=== PATIENT | female | born 1970 | race Caucasian/White ===

== ENCOUNTER 2021-03-11 14:47 | Emergency (ER) | payer BC, SELFPAY ==
[2021-03-11 14:50] VITALS: BP 159/89; PULSE 136; RESP 17; TEMP 36.1; O2SAT 97; BMI 35.7
[2021-03-11 15:20] LABS: Internal QC Validated? YES +Cl - CLEAR BKGD
[2021-03-11 15:22] LABS: Pregnancy, Serum, hCG Quali. NEGATIVE Negative
[2021-03-11 15:26] LABS: Anion Gap 3 (5-15); BUN 18 mg/dL (7-18); BUN/Creat Ratio 15.7 RATIO (10-20); Calcium,Total 9.2 mg/dL (8.5-10.1); Chloride 102 mmol/L (98-107); Creatinine, Serum 1.15 mg/dL (0.55-1.02); EST Glomerular Filtration Rate 53 mL/min (>60); Est Glom Filt Rate - Afr Amer 64 mL/min (>60); Estimated Creatinine Clearance 52.08 ml/min; Glucose 122 mg/dL (74-106); Potassium 3.3 mmol/L (3.5-5.1); Sodium Level 136 mmol/L (136-145)
--- NOTE | 2021-03-11 15:33 | EDS_ITS ---
HPI HPI - GI History of Present Illness Chief Complaint: Nausea/Vomiting/Diarrhea Informant: patient Narrative Narrative: Patient has had nausea, vomiting and diarrhea. Symptoms started 9 days ago and are progressively getting worse. She has been vomiting multiple times a day. She tried 4 mg of Zofran ODT without relief. She has been dealing with sinus drainage and believes that is the cause of the nausea. Her doctor put her on doxycycline which is only made her symptoms worse as far as the nausea and vomiting. She has not take anything for the diarrhea. She denies any abdominal pain with this. She has history of an appendectomy in the past. She denies any dysuria or hematuria. PFSH PFSH Home Medications promethazine 25 mg PO Q6H PRN PRN #10 tablet 03/11/21 [Rx Last Taken Unknown] Allergy/AdvReac Type Severity Reaction Status Date / Time amoxicillin Allergy Rash Verified 03/11/21 14:48 Social History Smoking Status: Never smoker ROS ROS ED Constitutional Constitutional ED: Denies chills or fever(s) Eyes Eyes: Denies blurry vision, change in vision or diplopia ENT ENT ED: Denies ear pain, rhinorrhea or sore throat Cardiovascular Cardiovascular: Denies chest pain or palpitations Respiratory/Chest Respiratory/Chest: Denies cough, dyspnea or sputum Gastrointestinal Gastrointestinal: Reports diarrhea, nausea and vomiting Genitourinary Genitourinary ED: Denies dysuria, hematuria or urinary frequency Musculoskeletal Musculoskeletal: Denies back pain or neck pain Integumentary Denies change in pigmentation or rash Neurologic Neurologic: Denies headache(s), numbness or weakness Psychiatric Psychiatric: Denies anxiety or depression Endocrine Endocrinology: Denies polydipsia or polyuria EXAM Physical Exam Const Vital Signs: 03/11/21 14:50 03/11/21 15:51 03/11/21 17:27 Temperature 96.9 F L Temperature Source Temporal Pulse Rate 136 H 122 H 132 H Respiratory Rate 17 18 18 Blood Pressure 159/89 H 145/100 H Blood Pressure Mean 112 115 Pulse Ox 97 94 94 Oxygen Delivery Method Room Air Room Air Room Air Positive well nourished and well developed General Appearance ED: well developed and NAD HEENT Reports moist mucous membranes normocephalic and atraumatic; Negative for tenderness Eyes PERRL and EOMs intact bilaterally Neck supple and no JVD Chest Wall Chest: Negative for tenderness Resp normal respiratory effort and clear to auscultation bilaterally Effort and Inspection: Negative for respiratory distress Cardio regular rhythm and no murmurs Rate: regular rate and tachycardic Rhythm: regular rhythm GI soft to palpation, non-tender and non-distended Palpation: soft Back/Spine no CVA tenderness and no thoracic nor lumbar tenderness Cervical Spine: Negative for cervical spine tenderness Extremity normal to inspection and full ROM General Extremety ED: Negative for tenderness Neuro oriented x3, CN's II-XII intact bilaterally and no sensory deficits noted Sensorium / Orientation: awake and alert Motor Exam: strength 5/5 throughout Psych mental status grossly normal Skin no rashes or lesions noted MDM MDM MDM Narrative Medical decision making narrative: The patient was given 1 L of IV fluids as well as Zofran. Laboratory studies show hemoconcentration. Her creatinine is 1.15. Glucose is 122. test is negative. Liver enzymes and lipase ar e normal except for an ALT of 62. She continued to have nausea so she was given Reglan which also did not help. Intramuscular Phenergan was given and this made her feel better. She was given a second liter of IV fluids due to her continued tachycardia. I feel that this tachycardia is due to dehydration. Her white blood cell count is normal. Do not feel that she is septic. There is no eviden ce of urinary tract infection on the urinalysis. Patient will be discharged home with Phenergan orally to take. She will need to follow-up with her PCP. Lab Data Labs: Laboratory Results - last 24 hr 03/11/21 03/11/21 03/11/21 15:00 15:00 15:00 WBC 7.7 RBC 5.68 H Hgb 15.7 H Hct 49.5 H MCV 87.1 MCH 27.6 MCHC 31.7 L RDW Std Deviation 41.1 RDW Coeff of Armida 12.9 Plt Count 231 MPV 11.6 Immature Gran % (Auto) 0.600 Neut % (Auto) 83.4 H Lymph % (Auto) 8.6 L [place] % (Auto) 7.1 Eos % (Auto) 0.0 Baso % (Auto) 0.3 Absolute Neuts (auto) 6.4 Absolute Lymphs (auto) 0.66 L Nucleated RBC % 0 Sodium 136 Potassium 3.3 L Chloride 102 Carbon Dioxide 31.0 Anion Gap 3 L BUN 18 Creatinine 1.15 H Estim Creat Clear Calc 52.08 Est GFR (MDRD) Af Amer 64 Est GFR (MDRD) Non-Af 53 L BUN/Creatinine Ratio 15.7 Glucose 122 H Calcium 9.2 Total Bilirubin Direct Bilirubin AST ALT Alkaline Phosphatase Total Protein Albumin Globulin Lipase Serum , Qual NEGATIVE Urine Color Urine Clarity Urine pH Ur Specific [place] Urine Protein Urine Glucose (UA) Urine Ketones Urine Occult Blood Urine Nitrite Urine Bilirubin Urine Urobilinogen Ur Leukocyte Esterase Urine RBC Urine WBC Ur Squamous Epith Cells Urine Bacteria Urine Mucus 03/11/21 03/11/21 03/11/21 15:00 15:00 17:50 WBC RBC Hgb Hct MCV MCH MCHC RDW Std Deviation RDW Coeff of [place] Plt Count MPV Immature Gran % (Auto) Neut % (Auto) Lymph % (Auto) [place] % (Auto) Eos % (Auto) Baso % (Auto) Absolute Neuts (auto) Absolute Lymphs (auto) Nucleated RBC % Sodium Potassium Chloride Carbon Dioxide Anion Gap BUN Creatinine Estim Creat Clear Calc Est GFR (MDRD) Af Amer Est GFR (MDRD) Non-Af BUN/Creatinine Ratio Glucose Calcium Total Bilirubin 0.70 Direct Bilirubin 0.20 AST 36 ALT 62 H Alkaline Phosphatase 87 Total Protein 8.6 H Albumin 3.5 Globulin 5.1 H Lipase 58 L Serum , Qual Urine Color Yellow Urine Clarity Clear Urine pH 6.0 Ur Specific [place] 1.015 Urine Protein 100 H Urine Glucose (UA) Normal Urine Ketones 50 H Urine Occult Blood 250 H Urine Nitrite Negative Urine Bilirubin 1 H Urine Urobilinogen 1 H Ur Leukocyte Esterase 25 H Urine RBC 0-5 SEEN Urine WBC 0-5 SEEN Ur Squamous Epith Cells 0-5 SEEN Urine Bacteria 0 SEEN Urine Mucus 0 SEEN Discharge Plan Triage Chief Complaint: Nausea/Vomiting/Diarrhea ED Provider: Rudi Galvin Dx/Rx/DC Orders Clinical Impression: Gastroenteritis Instructions: ED Food Poison Or Gastroenteritis Prescriptions: New promethazine [promethazine] 25 MG tablet 25 mg PO Q6H PRN PRN (Reason: Nausea) Qty: 10 RF: 0 Primary Care Provider: Giovani Mcclellan Referrals: Giovani Mcclellan, [Primary Care Provider] - Disposition Disposition: Home, self care
[2021-03-11 15:40] LABS: Absolute Lymphocyte Count 0.66 X10^3/uL (0.83-4.51); Absolute Neutrophil Count 6.4 X10^3/uL (2.0-7.7); Basophil# 0.02 X10^3/uL; Basophil% 0.3 % (0-1); Hematocrit 49.5 % (37-47); Hemoglobin 15.7 g/dL (12.0-15.0); Lymphocyte # 0.66 X10^3/ul (0.83-4.51); Lymphocyte % 8.6 % (19-41); Mean Corp Hgb Conc 31.7 g/dL (32-36); Mean Corpuscular Hgb 27.6 pg (27.0-32.0); Mean Corpuscular Volume 87.1 fL (81-99); Mean Platelet Vol. 11.6 fl (6.2-12.0); Monocyte# 0.55 X10^3/uL; Monocyte% 7.1 % (0-10); NRBC Flagged by Analyzer 0 % (0-5); Neutrophil # 6.43 X10^3/uL (2.7-7.7); Neutrophil % 83.4 % (47-70); Platelet Count 231 K/mm3 (150-450); RBC Distribution Width CV 12.9 % (11.6-14.6); RBC Distribution Width SD 41.1 fl (35.1-43.9); Red Blood Count 5.68 M/mm3 (4.2-5.4); White Blood Count 7.7 K/mm3 (4.4-11.0)
[2021-03-11] MEDS: 0.9% Normal Saline 1,000 ML 1000 ML IV ×2 (15:44→17:45)
[2021-03-11] MEDS: Ondansetron 4 MG/2 ML Vial IV (15:45)
[2021-03-11 15:51] VITALS: PULSE 122; RESP 18; O2SAT 94
[2021-03-11 16:19] LABS: Lipase 58 U/L (73-393)
[2021-03-11 16:21] LABS: AST(SGOT) 36 U/L (15-37); Alanine Aminotransfer ALT/SGPT 62 U/L (13-56); Albumin, Serum 3.5 g/dL (3.2-5.0); Alkaline Phosphatase 87 U/L (45-117); Globulin 5.1 g/dL (2.2-4.2); Protein, Total 8.6 g/dL (6.4-8.2)
[2021-03-11 17:27] VITALS: BP 145/100; PULSE 132; RESP 18; O2SAT 94
[2021-03-11] MEDS: Metoclopramide 10 MG/2 ML Vial IV (17:43)
[2021-03-11 17:56] LABS: Bacteria 0 SEEN /hpf (None Seen); Mucous, Urine 0 SEEN /hpf (<or=2+)
[2021-03-11 17:58] LABS: Color, Urine Yellow (Yellow); Glucose, Dipstick Normal (Normal); Ketone-Dipstick 50 mg/dl (Negative); Leukocyte Esterase-Dipstick 25 /ul (Negative); Nitrite-Dipstick Negative (Negative); Occult Blood-Urine 250 /ul (Negative); Protein-Dipstick 100 mg/dl (Negative); Specific Gravity, Urine 1.015 (1.002-1.030); Urine Bilirubin Dipstick 1 mg/dL (Negative); Urine Clarity Clear (Clear); Urine Urobilinogen 1 mg/dl (Normal)
[2021-03-11 18:04] LABS: Red Blood Cells-Urine 0-5 SEEN /hpf (0-5); Squamous Epithelial Cells - UA 0-5 SEEN /hpf (5-10); White Blood Cells 0-5 SEEN /hpf (0-5)
[2021-03-11] MEDS: proMETHazine 25 MG/ML Syringe 12.5 MG IM (18:30)
== END 2021-03-11 20:27 | disposition home or self-care (01) ==
PROVIDERS: Emergency Provider Emergency Medicine; PCP Student in an Organized Health Care Education/Training Program
DX: K52.9 Noninfective gastroenteritis and colitis, unspecified (principal)
CPT/HCPCS: 80048; 80076; 81001; 83690; 84703; 85025; 96361; 96372; 96374; 96375; 99283; J7030; A4216; J2405